=== PATIENT | male | born 1940 | race Hispanic/Latino ===

== ENCOUNTER 2018-08-19 17:07 | Inpatient (IN) | payer MEDICARE, OTHER ==
[2018-08-19 18:00] LABS: Bilirubin Moderate (Negative); Blood, Urine Negative (Negative); Clarity CLEAR (Clear); Glucose, Urine (Dipstick) 250 mg/dL (Negative); Leukocyte Negative (Negative); Nitrite Negative (Negative); Protein, Urine (Dipstick) 30 mg/dL (Neg-Trace); Specific Gravity, Urine 1.011 (1.002-1.036); pH, Urine 7.5 (5.0-9.0)
[2018-08-19 18:01] LABS: Bacteria/HPF None Seen HPF (None Seen); Hyaline Casts/LPF 0-3 HYALINE CAST LPF (0-3 Hyaline); RBC/HPF 0-3 HPF (0-3); Squamous Epithelial None Seen HPF (0-3); WBC/HPF 0-3 HPF (0-3)
[2018-08-19] MEDS ORDERED: Ondansetron PF 4 MG/2 ML Vial IVP PRN (18:02)
[2018-08-19] MEDS ORDERED: Acetaminophen 1,000 MG in Premix Bag 1 BAG IVPB PRN (18:04)
[2018-08-19] MEDS ORDERED: Promethazine 25 MG TAB PO PRN (18:06)
--- NOTE | 2018-08-19 18:22 | RAD ---
PORTABLE AP CHEST X-RAY 08/19/18 HISTORY: UTI. Continued weakness and leg pain. COMPARISON: 04/17/16. FINDINGS: The cardiac silhouette and pulmonary vasculature are within normal limits. Lungs are clear. There is stable symmetric biapical pleural thickening noted. Vascular calcifications are seen in the thoracic aorta. There has been no interval change from the prior exam. IMPRESSION: No acute cardiopulmonary process. POS: C
[2018-08-19] MEDS ORDERED: Dextrose 50% Abboject 50 ML SYRINGE SLOW IVP PRN (18:45)
[2018-08-19] MEDS ORDERED: Dextrose 5% in Water 1,000 ML IV PRN (18:45)
[2018-08-19 19:16] LABS: PTT 26.6 SEC (22.9-36.1); Prothrombin Time 13.1 SEC (12.0-14.7)
[2018-08-19] MEDS ORDERED: busPIRone HCl 5 MG TAB PO SCH (20:00)
[2018-08-19] MEDS: Sodium Chloride 0.9% 1,000 ML IV SCH (21:55)
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
[2018-08-20] MEDS ORDERED: Lorazepam 2 MG/ML VIAL ONE (01:04)
[2018-08-20] MEDS ORDERED: Fentanyl 100 MCG/2 ML VIAL ONE ×2 (06:45→09:11)
[2018-08-20] MEDS ORDERED: Lidocaine 0.5%/Epinephrine 1:200,000 50 ml Vial ONE (06:50)
[2018-08-20] MEDS ORDERED: Lorazepam 2 MG/ML VIAL SLOW IVP SCH (07:00)
[2018-08-20] MEDS: Lorazepam 2 MG/ML VIAL SLOW IVP PRN (07:01)
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
[2018-08-20] MEDS ORDERED: Famotidine/PF 20 mg/2ml Vial ONE (08:07)
[2018-08-20] MEDS ORDERED: Labetalol HCl 100 MG/20 ML VIAL ONE (09:56)
[2018-08-20] MEDS: Sodium Chloride 0.9% 1,000 ML IV SCH ×2 (10:17→16:57)
[2018-08-20] MEDS: Morphine 4 MG/ML VIAL SLOW IVP PRN ×2 (10:27→20:23)
[2018-08-20] MEDS: CEFAZOLIN 2 GM/50 ML BAG IVPB SCH ×2 (10:28→16:57)
[2018-08-20] MEDS ORDERED: Haloperidol Lactate 5 MG/ML VIAL IM SCH (10:30)
--- NOTE | 2018-08-20 10:39 | OP ---
DATE OF PROCEDURE: 08/20/2018 TROUBLE LOCATOR TEST DESK: Nilson. PROCEDURE PERFORMED: Left kimmy hole evacuation of subdural hematoma. DESCRIPTION OF PROCEDURE: The patient was brought to the operating room and intubated. He was positioned supine with the head in modest flexion on gel-filled donut. Two incisions were made in the mid orbital line on the left and kimmy holes were placed. The dura was coagulated and divided. Ayan subdural hematoma was evacuated. The subdural space was extensively irrigated until clear. A drain was left in the subdural space. The wounds were extensively irrigated and then closed in anatomic layers. Job ID: [id number]
--- NOTE | 2018-08-20 12:17 | PDOC.PN ---
- Subjective Encounter Start Date: 08/20/18 Encounter Start Time: 12:16 . Wallace was seen today in follow-up of medical management of DM and HTN. He is s /p [place] hole for Subdural hematoma. - Objective MAR Reviewed: Yes Vital Signs & Weight: Vital Signs (12 hours) Temp Pulse BP Pulse Ox 08/20/18 10:56 97.4 F L 08/20/18 10:19 80 175/101 H 08/20/18 07:33 100 08/20/18 07:00 99.2 F 08/20/18 04:00 97.2 F L Weight Admit Weight 128 lb Weight 128 lb 1.417 oz Most Recent Monitor Data Heart Rate from ECG 73 NIBP 101/70 NIBP BP-Mean 80 Respiration from ECG 14 SpO2 94 I&O: 08/19/18 08/20/18 08/21/18 06:59 06:59 06:59 Intake Total 604 50 Output Total 450 60 Balance 154 -10 Additional Labs: Accuchecks 08/20/18 08/20/18 08/19/18 05:47 00:29 22:03 POC Glucose 162 H 135 H 156 H Phys Exam - Physical Examination HEENT: PERRLA Respiratory: no wheezing, no rales, no rhonchi, clear to auscultation bilateral Cardiovascular: RRR, no significant murmur, no rub Gastrointestinal: soft, non-tender, no distention, positive bowel sounds Musculoskeletal: no edema, pulses present Dx/Plan (1) Hypertension Code(s): I10 - ESSENTIAL (PRIMARY) HYPERTENSION Status: Chronic (2) Diabetes mellitus type 2 in nonobese Code(s): E11.9 - TYPE 2 DIABETES MELLITUS WITHOUT COMPLICATIONS Status: Chronic (3) Dysphagia Code(s): R13.10 - DYSPHAGIA, UNSPECIFIED Status: Acute (4) Subdural hematoma, acute Code(s): S06.5X9A - TRAUM SUBDR HEM W LOC OF UNSP DURATION, INIT Status: Acute - Plan * HTN- blood pressure is controlled * DM- stable- will continue SSI for now- once he is eating- will re-start scheduled insulin * Dysphagia- once feasible, will have Speech Therapy perform an evaluation * Subdural Hematoma- he is s/p Kevin Hole.
[2018-08-20] MEDS: HumaLOG 300 UNITS/3 ML VIAL SC PRN ×2 (13:00→18:06)
--- NOTE | 2018-08-20 13:10 | PQF ---
CLINICAL DOCUMENTATION IMPROVEMENT CLARIFICATION FORM: ICD-10 Updated PLEASE DO AN ADDENDUM TO THE PROGRESS NOTE WITH ANY DOCUMENTATION UPDATES OR ADDITIONS AND CARRY THROUGH TO DC SUMMARY. THANK YOU. DATE: 08/20/18 ATTN : DR. LUCAS Please exercise your independent, professional judgment in responding to the clarification form. Clinical indicators are provided on the bottom of this form for your review Please check appropriate box(s): [ ] Cerebral edema / Vasogenic edema [ ] Compression of brain Due to: [ ] Intracranial tumor [ ] Intracranial hematoma [ ] Acute cerebral infarction [ ] Traumatic brain injury [ ] Obstructive hydrocephalus [ ] Other diagnosis [ ] Unable to determine In addition, please specify: Present on Admission (POA): [ ] Yes [ ] No [ ] Unable to determine For continuity of documentation, please document condition throughout progress notes and discharge summary. Thank You. CLINICAL INDICATORS - SIGNS / SYMPTOMS / LABS ER NOTE: "CHRONIC SUBDURAL WITH MIDLINE SHIFT" RISKS: SUBDURAL HEMATOMA TREATMENT: ELIAS HOLE EVACUATION LABETALOL NEUROSURGERY CONSULT NEURO CHECKS INCREASED MONITORING OF BLOOD PRESSURE (This form is maintained as a part of the permanent medical record) 2014 [employer]. All Rights Reserved ANGELICA [email or web address] Office: [phone] [facility]
[2018-08-20] MEDS ORDERED: Labetalol HCl 100 MG/20 ML VIAL SLOW IVP PRN (14:16)
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
[2018-08-20] MEDS ORDERED: Metoclopramide HCl 10 MG/2 ML VIAL ONE (21:03)
[2018-08-20] MEDS ORDERED: PHENYLEPHRINE-NS 100 MCG/ML 10 ML SYRINGE ONE (21:03)
[2018-08-20] MEDS ORDERED: CEFAZOLIN 1 GM VIAL ONE (21:03)
[2018-08-20] MEDS ORDERED: Sterile Water 10 ML VIAL ONE (21:03)
[2018-08-20] MEDS ORDERED: Succinylcholine Chloride 20 MG/ML 10 ml SYRINGE FS ONE (21:03)
[2018-08-20] MEDS ORDERED: Lidocaine 1% PF 5 ML VIAL ONE (21:03)
[2018-08-20] MEDS ORDERED: Ondansetron PF 4 MG/2 ML Vial ONE (21:03)
[2018-08-20] MEDS ORDERED: PROPOFOL 200 MG/20 ML VIAL ONE (21:03)
[2018-08-20] MEDS ORDERED: ePHEDrine/0.9% NaCl/PF SYRINGE 50 mg/10 ml ONE (21:03)
[2018-08-21] MEDS: HumaLOG 300 UNITS/3 ML VIAL SC PRN ×2 (00:37→11:48)
[2018-08-21] MEDS: CEFAZOLIN 2 GM/50 ML BAG IVPB SCH ×2 (02:14→10:06)
[2018-08-21 04:39] LABS: Hemoglobin 13.2 g/dL (14.0-18.0); Mean Corpuscular HGB CONC 34.6 g/dL (32.0-36.0); Mean Corpuscular Hemoglobin 32.1 pg (27.0-31.0); Mean Corpuscular Volume 92.8 fL (78.0-98.0); Platelet Count 350 thou/uL (130-400); RBC Distribution Width 12.4 % (11.5-14.5); Red Blood Cell (RBC) Count 4.12 mill/uL (4.70-6.10); White Blood Cell (WBC) Count 11.5 thou/uL (4.8-10.8)
[2018-08-21 04:49] LABS: Lymphocytes 9 % (21-51); MDiff Complete? YES; Monocytes 1 % (0-10); Neutrophil 88 % (42-75); Platelet Morphology Comment Appears Adequate; RBC Morphology Normal; Reactive Lymphocytes 2 % (0-10)
[2018-08-21 04:50] LABS: Anion Gap 15 mmol/L (10-20); BUN (Urea Nitrogen) 18 mg/dL (8.4-25.7); Calc. Creatinine Clearance 46 mL/min (70-130); Calcium 8.8 mg/dL (7.8-10.44); Carbon Dioxide 20 mmol/L (23-31); Chloride 104 mmol/L (98-107); Estimated GFR-MDRD 63; Glucose 172 mg/dL (83-110); Potassium 4.1 mmol/L (3.5-5.1); Sodium 135 mmol/L (136-145)
[2018-08-21] MEDS: Sodium Chloride 0.9% 1,000 ML IV SCH ×3 (07:25→21:33)
[2018-08-21] MEDS: HYDROcodone/Acetaminophen 10/325 mg Tablet PO PRN ×2 (07:25→20:13)
--- NOTE | 2018-08-21 08:24 | CT ---
PRELIMINARY REPORT/[facility]/EMERGENTY AFTER-HOURS PROCEDURE Addendum created by Axel Heard MD on 08/21/2018 5:53 AM Central Time ([employer]) Prior images from 08/19/18 subsequently submitted for review. LEFT subdural hemorrhage and midline shift have decreased f rom prior. Initial Report created on 08/21/2018 5:28 AM Central Time ([employer]) CT Head Without Contrast EXAM DATE/TIME: 08/21/2018 3:10 AM CLINICAL HISTORY: 77 years old, male; Device placement; Cerebral fluid drainiage device or shunt; Prior surgery; Surger y date: Post-operative (0-2 days); Patient HX: S/P evac sdh; Additional info: PT was scanned at [facility] facility with mrn of [id number], prior images sent. TECHNIQUE: Axial computed tomography images of the head/brain without contrast. COMPARISON: No relevant prior studies available. FINDINGS: Brain: There is been interval LEFT frontoparietal subdural drain placement via a LEFT frontal kimmy ho le. LEFT frontoparietal fluid measures up to 12 mm in short axis resulting in mild mass effect Midline shift: Midline shift now measures approximately 5 mm Ventricles: Normal. No ventriculomegaly. Bones/joints: Normal. No acute fracture. Sinuses: Normal as visualized. No acute sinusitis. Mastoid air cells: Normal as visualized. No mastoid effusion. Soft tissues: Normal. IMPRESSION: LEFT frontoparietal subdural hemorrhage post evacuation/drain placement with mild mass effect/midline shift of 5 mm, decreased as per prior report. Thank you for allowing us to participate in the care of your patient. Dictated and Authenticated by: Axel Heard MD 08/21/2018 5:28 AM Central Time ([employer]) FINAL REPORT CT HEAD NONCOTNRAST: FINDINGS/IMPRESSION: Agree with the preliminary interpretation provided above. Post subdural drainage placement overlying left convexity with residual mixed density subdural hemorr hagic fluid collection, decreased in volume from comparison (08/19/2018) exam, with details discussed a cindy. Recommend continued imaging followup. POS: [facility]
--- NOTE | 2018-08-21 09:38 | PDOC.PN ---
- Subjective Encounter Start Date: 08/21/18 Encounter Start Time: 09:37 Mr. Gonsalez was seen today in follow-up of medical management in patient with Sudbural hematoma. He is s/p kimmy hole, and he is awake, he had some agitation yesterday, but this has improved with Haldol. He is a bit drowsy, but awake. No complaints. - Objective MAR Reviewed: Yes Vital Signs & Weight: Vital Signs (12 hours) Temp Pulse Ox 08/21/18 08:00 99 08/21/18 07:00 97.3 F L 08/21/18 04:00 97.0 F L 08/21/18 00:00 97.8 F Weight Admit Weight 128 lb Weight 125 lb 10.616 oz Most Recent Monitor Data Heart Rate from ECG 58 NIBP 74/48 NIBP BP-Mean 56 Respiration from ECG 19 SpO2 97 I&O: 08/20/18 08/21/18 08/22/18 06:59 06:59 06:59 Intake Total 604 2048.7 90 Output Total 450 975 235 Balance 154 1073.7 -145 Result Diagrams: 08/21/18 04:05 08/21/18 04:05 Additional Labs: Accuchecks 08/21/18 08/20/18 08/20/18 00:35 17:55 12:38 POC Glucose 213 H 166 H 220 H Phys Exam - Physical Examination HEENT: PERRLA Respiratory: no wheezing, no rales, no rhonchi, clear to auscultation bilateral Cardiovascular: RRR, no significant murmur, no rub Gastrointestinal: soft, non-tender, no distention, positive bowel sounds Musculoskeletal: no edema Dx/Plan (1) Hypertension Code(s): I10 - ESSENTIAL (PRIMARY) HYPERTENSION Status: Chronic (2) Diabetes mellitus type 2 in nonobese Code(s): E11.9 - TYPE 2 DIABETES MELLITUS WITHOUT COMPLICATIONS Status: Chronic (3) Dysphagia Code(s): R13.10 - DYSPHAGIA, UNSPECIFIED Status: Acute (4) Subdural hematoma, acute Code(s): S06.5X9A - TRAUM SUBDR HEM W LOC OF UNSP DURATION, INIT Status: Acute - Plan * HTN- his blood pressure has been on the lower side- this may be the effect of Presodex- will monitor * DM- blood glucose was a bit elevated- will see what his trend is today . Continue SSI * Dysphagia- he was evaluated by Speech Therapy, and was cleared for a Pureed diet- will continue to observe during the hospital stay * Subdural - he is post [place] hole, and drain is still in place. PT/ OT has been ordered
[2018-08-21] MEDS: Lorazepam 2 MG/ML VIAL SLOW IVP PRN ×2 (10:06→22:00)
[2018-08-21] MEDS: Haloperidol Lactate 5 MG/ML VIAL IM PRN (11:29)
--- NOTE | 2018-08-21 16:28 | PRG ---
DATE OF SERVICE: 08/21/2018 SUBJECTIVE: Mr. Gonsalez was up until product picker hours. He was sleeping when I arrived this morning to around on him. He was easily awakened. OBJECTIVE: He had no complaints. VITAL SIGNS: Blood pressure this afternoon is 133/76, heart rates in the 90s, respiratory rates in the teens. Oximetry is 99%. Intake and output positive 1073. He has had 235 mL out of his drain. LUNGS: Clear. HEART: Regular rhythm. ABDOMEN: Soft. EXTREMITIES: Without asymmetry or edema. LABORATORY DATA: White count 11.5, hemoglobin 13.2, and platelets 350. Sodium 135, potassium 4.1, chloride 104, bicarb 20, BUN 18, and creatinine 1.13. IMPRESSION: 1. Status post kimmy hole drainage of a subdural hematoma, clinically stable. 2. Encephalopathy Precedex drip. We will continue to follow the other physicians caring for him. Job ID: [id number]
[2018-08-21] MEDS: traZODone HCl 50 MG TAB PO SCH (20:09)
[2018-08-22] MEDS: Sodium Chloride 0.9% 1,000 ML IV SCH ×2 (03:57→12:06)
[2018-08-22] MEDS: Lorazepam 2 MG/ML VIAL SLOW IVP PRN ×3 (04:01→19:16)
[2018-08-22 04:52] LABS: Hemoglobin 12.8 g/dL (14.0-18.0); Mean Corpuscular HGB CONC 34.9 g/dL (32.0-36.0); Mean Corpuscular Hemoglobin 32.1 pg (27.0-31.0); Mean Corpuscular Volume 92.1 fL (78.0-98.0); Platelet Count 292 thou/uL (130-400); RBC Distribution Width 12.4 % (11.5-14.5); Red Blood Cell (RBC) Count 3.97 mill/uL (4.70-6.10); White Blood Cell (WBC) Count 8.7 thou/uL (4.8-10.8)
[2018-08-22 05:07] LABS: Anion Gap 13 mmol/L (10-20); BUN (Urea Nitrogen) 11 mg/dL (8.4-25.7); Calc. Creatinine Clearance 60 mL/min (70-130); Calcium 8.5 mg/dL (7.8-10.44); Carbon Dioxide 20 mmol/L (23-31); Chloride 105 mmol/L (98-107); Estimated GFR-MDRD 89; Glucose 155 mg/dL (83-110); Potassium 3.7 mmol/L (3.5-5.1); Sodium 134 mmol/L (136-145)
[2018-08-22 05:08] LABS: Band 1 % (5-11); Eosinophils 2 % (0-10); Lymphocytes 11 % (21-51); MDiff Complete? YES; Monocytes 4 % (0-10); Neutrophil 82 % (42-75)
--- NOTE | 2018-08-22 09:29 | PRG ---
DATE OF SERVICE: 08/19/2018 SUBJECTIVE: The patient is a 77-year-old male status post left-sided bur holes for evacuation of chronic subdural hematoma. Postoperatively, he was transferred to critical care, where his pain has been well controlled. He is tolerating regular diet, and he is voiding appropriately. His subdural drain output has trended down nicely. His repeat CT on postoperative day #1 showed significant improvement in chronic subdural blood. The patient has required Precedex and other p.r.n. medications for significant agitation and delirium. This morning, the patient is resting comfortably. He opens his eyes easily on command. He is A and O x4. He is moving all four easily with 5/5 strength. There is a small amount of dark red blood in the subdural drain. I have removed subdural LATISHA drain this morning. I believe that the patient can be transferred out of the ICU today once his Precedex is discontinued and his other psychiatric medications are adjusted by the Medical Team or Critical Care. The patient will likely need rehabilitation following this is done. Case management's note showed that family has requested inpatient rehabilitation in the [place] area and they are working on this. Job ID: [id number]
--- NOTE | 2018-08-22 10:03 | PDOC.PN ---
- Subjective Encounter Start Date: 08/22/18 Encounter Start Time: 10:02 Mr. Gonsalez was seen today in follow-up of medical management following subdural hematoma. - Objective MAR Reviewed: Yes Vital Signs & Weight: Vital Signs (12 hours) Temp Pulse Ox 08/22/18 07:33 99 08/22/18 07:00 98.0 F 08/22/18 04:00 97.8 F 08/22/18 00:00 97.7 F Weight Admit Weight 128 lb Weight 125 lb 10.616 oz Most Recent Monitor Data Heart Rate from ECG 59 NIBP 103/61 NIBP BP-Mean 75 Respiration from ECG 13 SpO2 97 I&O: 08/21/18 08/22/18 08/23/18 06:59 06:59 06:59 Intake Total 2048.7 2265.4 Output Total 975 2955 320 Balance 1073.7 -689.6 -320 Result Diagrams: 08/22/18 04:07 08/22/18 04:07 Additional Labs: Accuchecks 08/22/18 08/21/18 08/21/18 00:20 17:31 11:47 POC Glucose 197 H 165 H 226 H Phys Exam - Physical Examination HEENT: PERRLA Respiratory: no wheezing, no rales, no rhonchi, clear to auscultation bilateral Cardiovascular: RRR, no significant murmur, no rub Gastrointestinal: soft, non-tender, no distention, positive bowel sounds Musculoskeletal: no edema, pulses present Dx/Plan (1) Hypertension Code(s): I10 - ESSENTIAL (PRIMARY) HYPERTENSION Status: Chronic (2) Diabetes mellitus type 2 in nonobese Code(s): E11.9 - TYPE 2 DIABETES MELLITUS WITHOUT COMPLICATIONS Status: Chronic (3) Dysphagia Code(s): R13.10 - DYSPHAGIA, UNSPECIFIED Status: Acute (4) Subdural hematoma, acute Code(s): S06.5X9A - TRAUM SUBDR HEM W LOC OF UNSP DURATION, INIT Status: Acute - Plan * HTN- blood pressure is stable * DM- blood glucose is stable- will continue SSI for now, and if he begins to eat more, will re-start his insulin * Will re-start his medications for Dementia * Subdural- the drain has been removed, and agree with transfer out of the ICU .
[2018-08-22] MEDS: busPIRone HCl 5 MG TAB PO SCH (10:49)
[2018-08-22] MEDS: Venlafaxine HCl 37.5 MG TAB PO SCH ×2 (10:49→20:13)
[2018-08-22 11:04] VITALS: BMI 19.1
[2018-08-22] MEDS: HumaLOG 300 UNITS/3 ML VIAL SC PRN (12:03)
--- NOTE | 2018-08-22 12:04 | PRG ---
DATE OF SERVICE: 08/22/2018 SUBJECTIVE: Abel Gonsalez had his kimmy hole drain removed this morning. OBJECTIVE: GENERAL: He is in no distress. VITAL SIGNS: Heart rate is 90, his blood pressure is 123/87, respiratory rate is 22, and oximetry is 96%. LUNGS: Clear. HEART: Regular rhythm. ABDOMEN: Soft. EXTREMITIES: Without clubbing, cyanosis, or edema. PLAN: 1. His Precedex been discontinued. 2. He is on BuSpar now. 3. He also has a p.r.n. for Haldol if needed. 4. He is tentatively scheduled to transfer out of the Critical Care Unit to the Stroke Unit. 5. He will need a sitter or family to stay with him in my opinion. We will sign off when he transfers out of the Critical Care Unit. Job ID: [id number]
[2018-08-22] MEDS: Morphine 4 MG/ML VIAL SLOW IVP PRN ×2 (15:33→20:11)
[2018-08-22] MEDS: hydrALAZINE 20 MG/ML VIAL SLOW IVP PRN (15:35)
[2018-08-22] MEDS: HYDROcodone/Acetaminophen 10/325 mg Tablet PO PRN (18:38)
[2018-08-22] MEDS: Atorvastatin Calcium 10 MG TAB PO SCH (20:13)
[2018-08-22] MEDS: traZODone HCl 50 MG TAB PO SCH (20:13)
[2018-08-22] MEDS ORDERED: Venlafaxine HCl 37.5 MG TAB PO SCH (21:00)
[2018-08-22] MEDS: Haloperidol Lactate 5 MG/ML VIAL IM PRN (22:01)
[2018-08-23] MEDS ORDERED: Ziprasidone 20 MG VIAL IM SCH (01:45)
[2018-08-23] MEDS ORDERED: Sterile Water 10 ML VIAL FS SCH (01:45)
[2018-08-23] MEDS: Sodium Chloride 0.9% 1,000 ML IV SCH ×3 (03:18→23:08)
[2018-08-23 06:53] LABS: Anion Gap 15 mmol/L (10-20); BUN (Urea Nitrogen) 14 mg/dL (8.4-25.7); Calc. Creatinine Clearance 58 mL/min (70-130); Carbon Dioxide 21 mmol/L (23-31); Chloride 105 mmol/L (98-107); Estimated GFR-MDRD 84; Glucose 118 mg/dL (83-110); Potassium 3.6 mmol/L (3.5-5.1); Sodium 137 mmol/L (136-145)
[2018-08-23 07:57] LABS: Band 6 % (5-11); Lymphocytes 12 % (21-51); MDiff Complete? YES; Mean Corpuscular HGB CONC 34.6 g/dL (32.0-36.0); Mean Corpuscular Hemoglobin 31.8 pg (27.0-31.0); Mean Corpuscular Volume 91.9 fL (78.0-98.0); Mean Platelet Volume 7.5 fL (7.4-10.4); Monocytes 7 % (0-10); Neutrophil 75 % (42-75); Platelet Count 306 thou/uL (130-400); RBC Distribution Width 12.4 % (11.5-14.5); Red Blood Cell (RBC) Count 4.08 mill/uL (4.70-6.10); White Blood Cell (WBC) Count 9.5 thou/uL (4.8-10.8)
[2018-08-23] MEDS ORDERED: busPIRone HCl 5 MG TAB PO SCH (09:00)
[2018-08-23] MEDS: Lisinopril 2.5 MG TAB PO SCH (09:15)
[2018-08-23] MEDS: busPIRone HCl 5 MG TAB PO SCH (09:15)
[2018-08-23] MEDS: Venlafaxine HCl 37.5 MG TAB PO SCH ×2 (09:15→19:59)
[2018-08-23] MEDS: Levothyroxine Sodium 25 MCG TAB PO SCH (09:15)
[2018-08-23] MEDS: Lorazepam 2 MG/ML VIAL SLOW IVP PRN ×3 (10:54→23:44)
--- NOTE | 2018-08-23 12:32 | PRG ---
DATE OF SERVICE: DICTATED FOR: Chaitanya Hercules MD SUBJECTIVE: Mr. Gonsalez is now operative day #3, having undergone left kimmy hole evacuation of chronic subdural hematoma. The patient states he is doing good today. He does report some headache that has been stable over the past several days. He has been ambulating and does not appear to have any focal deficits. Hospitalists are helping manage the patient's medical issues. Otherwise, the patient is stable for discharge to rehab once arrangements have been made. Case management has been working on this with the patient's family. Again, he is stable for discharge when arrangements have been made. Please call with any changes in the patient's neurologic status. Job ID: [id number]
--- NOTE | 2018-08-23 13:29 | PDOC.PN ---
- Subjective Encounter Start Date: 08/23/18 Encounter Start Time: 13:27 Mr. Gonsalez was seen today in follow-up of hypertension, and diabetes mellitus. He has been agitated off and on. He can not get comfortable. - Objective MAR Reviewed: Yes Vital Signs & Weight: Vital Signs (12 hours) Temp Pulse Resp BP Pulse Ox 08/23/18 11:30 97.4 F L 91 14 161/64 H 92 L 08/23/18 09:15 101 H 08/23/18 08:00 92 L 08/23/18 07:12 97.4 F L 101 H 16 217/91 H 92 L 08/23/18 03:58 97.6 F 105 H 18 116/80 97 Weight Admit Weight 128 lb Weight 125 lb 10.616 oz Most Recent Monitor Data Heart Rate from ECG 95 NIBP 144/67 NIBP BP-Mean 92 Respiration from ECG 22 SpO2 94 I&O: 08/22/18 08/23/18 08/24/18 06:59 06:59 06:59 Intake Total 2265.4 2193.3 Output Total 2955 460 Balance -689.6 1733.3 Result Diagrams: 08/23/18 05:10 08/23/18 05:10 Additional Labs: Accuchecks 08/23/18 08/23/18 08/22/18 12:22 05:34 20:22 POC Glucose 139 H 119 H 140 H 08/22/18 18:13 POC Glucose 120 H Phys Exam - Physical Examination HEENT: PERRLA Respiratory: no wheezing, no rales, no rhonchi, clear to auscultation bilateral Cardiovascular: RRR, no significant murmur, no rub Gastrointestinal: soft, non-tender, no distention, positive bowel sounds Musculoskeletal: no edema, pulses present Dx/Plan (1) Hypertension Code(s): I10 - ESSENTIAL (PRIMARY) HYPERTENSION Status: Chronic (2) Diabetes mellitus type 2 in nonobese Code(s): E11.9 - TYPE 2 DIABETES MELLITUS WITHOUT COMPLICATIONS Status: Chronic (3) Dysphagia Code(s): R13.10 - DYSPHAGIA, UNSPECIFIED Status: Acute (4) Subdural hematoma, acute Code(s): S06.5X9A - TRAUM SUBDR HEM W LOC OF UNSP DURATION, INIT Status: Acute - Plan * HTN- blood pressure is elevated- but I suspect this is due to his restlessness * Agitation- will give a trial of Geodon * DM- blood glucose is stable * Subdural hematoma- stable.
[2018-08-23] MEDS: Ziprasidone 20 MG CAP PO PRN ×2 (15:33→23:09)
[2018-08-23] MEDS: traZODone HCl 50 MG TAB PO SCH (19:58)
[2018-08-23] MEDS: Atorvastatin Calcium 10 MG TAB PO SCH (19:59)
[2018-08-23] MEDS: Insulin Glargine 10 UNITS in Pre-Filled Syringe SC SCH (20:49)
[2018-08-23] MEDS ORDERED: Non-Formulary Item 1 EACH (Levemir Flexpen [Levemir Flexpen] 25 UNITS) SQ SCH (21:00)
[2018-08-23] MEDS ORDERED: Non-Formulary Item 1 EACH (Levemir Flexpen [Levemir Flexpen] 10 UNITS) SQ SCH (21:00)
[2018-08-24 06:05] LABS: Anion Gap 15 mmol/L (10-20); BUN (Urea Nitrogen) 13 mg/dL (8.4-25.7); Calc. Creatinine Clearance 56 mL/min (70-130); Calcium 9.2 mg/dL (7.8-10.44); Carbon Dioxide 20 mmol/L (23-31); Chloride 105 mmol/L (98-107); Estimated GFR-MDRD 82; Glucose 102 mg/dL (83-110); Potassium 3.7 mmol/L (3.5-5.1); Sodium 136 mmol/L (136-145)
[2018-08-24] MEDS: Lorazepam 2 MG/ML VIAL SLOW IVP PRN (06:46)
[2018-08-24 06:49] LABS: Band 1 % (5-11); Hemoglobin 13.2 g/dL (14.0-18.0); Lymphocytes 14 % (21-51); MDiff Complete? YES; Mean Corpuscular HGB CONC 34.9 g/dL (32.0-36.0); Mean Corpuscular Hemoglobin 31.9 pg (27.0-31.0); Mean Corpuscular Volume 91.2 fL (78.0-98.0); Mean Platelet Volume 7.3 fL (7.4-10.4); Monocytes 11 % (0-10); Neutrophil 74 % (42-75); Platelet Count 296 thou/uL (130-400); RBC Distribution Width 12.4 % (11.5-14.5); Red Blood Cell (RBC) Count 4.16 mill/uL (4.70-6.10); White Blood Cell (WBC) Count 8.9 thou/uL (4.8-10.8)
[2018-08-24] MEDS: Venlafaxine HCl 37.5 MG TAB PO SCH ×2 (08:36→20:13)
[2018-08-24] MEDS: busPIRone HCl 5 MG TAB PO SCH (08:36)
[2018-08-24] MEDS: Levothyroxine Sodium 25 MCG TAB PO SCH (08:36)
[2018-08-24] MEDS: Insulin Glargine 10 UNITS in Pre-Filled Syringe SC SCH ×2 (08:36→20:12)
[2018-08-24] MEDS: Lisinopril 2.5 MG TAB PO SCH (08:36)
[2018-08-24] MEDS: Sodium Chloride 0.9% 1,000 ML IV SCH (12:05)
[2018-08-24] MEDS: HumaLOG 300 UNITS/3 ML VIAL SC PRN (12:08)
--- NOTE | 2018-08-24 12:46 | PRG ---
DATE OF SERVICE: 08/24/2018 SUBJECTIVE: Mr. Gonsalez is postoperative from left-sided kimmy hole evacuation of subdural hematoma. He spent a fair amount of time outside yesterday with family and evidently was doing very well. He continues to do well this morning. He is resting in bed, but is awake and moves extremities to command and his wounds are healing well. I have been told that he has been accepted in [place] for placement. We will work toward that today. Job ID: [id number]
--- NOTE | 2018-08-24 14:20 | PDOC.PN ---
- Subjective Encounter Start Date: 08/24/18 Encounter Start Time: 14:19 Mr. Gonsalez was seen today in follow-up of medical management. He has been more calm today. He does not have any new complaints. - Objective MAR Reviewed: Yes Vital Signs & Weight: Vital Signs (12 hours) Temp Pulse Resp BP Pulse Ox 08/24/18 10:57 97.4 F L 93 18 177/78 H 99 08/24/18 08:36 100 08/24/18 08:02 97.9 F 100 18 187/77 H 99 08/24/18 08:00 99 08/24/18 04:10 97.6 F 99 16 146/80 H 97 Weight Admit Weight 128 lb Weight 125 lb 10.616 oz Most Recent Monitor Data Heart Rate from ECG 95 NIBP 144/67 NIBP BP-Mean 92 Respiration from ECG 22 SpO2 94 I&O: 08/23/18 08/24/18 08/25/18 06:59 06:59 06:59 Intake Total 2193.3 920 480 Output Total 460 800 Balance 1733.3 920 -320 Result Diagrams: 08/24/18 04:58 08/24/18 04:58 Additional Labs: Accuchecks 08/24/18 08/24/18 08/23/18 11:02 05:53 23:35 POC Glucose 183 H 115 H 124 H 08/23/18 08/23/18 20:15 15:30 POC Glucose 162 H 168 H Phys Exam - Physical Examination HEENT: PERRLA Respiratory: no wheezing, no rales, no rhonchi, clear to auscultation bilateral Cardiovascular: RRR, no significant murmur, no rub Gastrointestinal: soft, non-tender, no distention, positive bowel sounds Musculoskeletal: no edema, pulses present Dx/Plan (1) Hypertension Code(s): I10 - ESSENTIAL (PRIMARY) HYPERTENSION Status: Chronic (2) Diabetes mellitus type 2 in nonobese Code(s): E11.9 - TYPE 2 DIABETES MELLITUS WITHOUT COMPLICATIONS Status: Chronic (3) Dysphagia Code(s): R13.10 - DYSPHAGIA, UNSPECIFIED Status: Acute (4) Subdural hematoma, acute Code(s): S06.5X9A - TRAUM SUBDR HEM W LOC OF UNSP DURATION, INIT Status: Acute - Plan * HTN- blood pressure is elevated- will add Amlodipine * DM- blood glucose is stable * Subdural Hematoma- he is s/p kimmy hole, and clinically stable * Plan is for transfer to half-way facility tomorrow.
[2018-08-24] MEDS: Ziprasidone 20 MG CAP PO PRN (16:20)
[2018-08-24] MEDS ORDERED: Amlodipine 5 MG TAB PO SCH (18:00)
[2018-08-24] MEDS: HYDROcodone/Acetaminophen 10/325 mg Tablet PO PRN (18:54)
[2018-08-24] MEDS: Atorvastatin Calcium 10 MG TAB PO SCH (20:13)
[2018-08-24] MEDS: traZODone HCl 50 MG TAB PO SCH (20:13)
[2018-08-25] MEDS: HumaLOG 300 UNITS/3 ML VIAL SC PRN ×2 (00:24→06:22)
[2018-08-25] MEDS: hydrALAZINE 20 MG/ML VIAL SLOW IVP PRN (04:44)
[2018-08-25] MEDS: Lorazepam 2 MG/ML VIAL SLOW IVP PRN (05:30)
[2018-08-25] MEDS: HYDROcodone/Acetaminophen 10/325 mg Tablet PO PRN ×2 (06:58→11:03)
[2018-08-25 07:23] LABS: Hemoglobin 12.9 g/dL (14.0-18.0); Mean Corpuscular Volume 91.5 fL (78.0-98.0); Mean Platelet Volume 7.2 fL (7.4-10.4); Platelet Count 309 thou/uL (130-400); RBC Distribution Width 12.4 % (11.5-14.5); Red Blood Cell (RBC) Count 4.03 mill/uL (4.70-6.10); White Blood Cell (WBC) Count 7.4 thou/uL (4.8-10.8)
[2018-08-25 07:30] LABS: Anion Gap 12 mmol/L (10-20); BUN (Urea Nitrogen) 16 mg/dL (8.4-25.7); Calc. Creatinine Clearance 52 mL/min (70-130); Calcium 9.3 mg/dL (7.8-10.44); Carbon Dioxide 25 mmol/L (23-31); Chloride 105 mmol/L (98-107); Estimated GFR-MDRD 75; Glucose 163 mg/dL (83-110); Potassium 3.4 mmol/L (3.5-5.1); Sodium 139 mmol/L (136-145)
[2018-08-25] MEDS: Levothyroxine Sodium 25 MCG TAB PO SCH (08:14)
[2018-08-25] MEDS: Lisinopril 2.5 MG TAB PO SCH (08:14)
[2018-08-25] MEDS: Venlafaxine HCl 37.5 MG TAB PO SCH (08:14)
[2018-08-25] MEDS: busPIRone HCl 5 MG TAB PO SCH (08:14)
[2018-08-25] MEDS ORDERED: Insulin Glargine 25 UNITS in Pre-Filled Syringe 1 EACH SC SCH ×2 (09:00→21:00)
[2018-08-25 10:07] LABS: Band 3 % (5-11); Eosinophils 4 % (0-10); Lymphocytes 12 % (21-51); MDiff Complete? YES; Monocytes 6 % (0-10); Neutrophil 75 % (42-75); RBC Morphology Normal
--- NOTE | 2018-08-25 11:32 | PDOC.PN ---
- Subjective Encounter Start Date: 08/25/18 Encounter Start Time: 11:31 Mr. Gonsalez was seen today in follow-up of medical management following sudbural hematoma. He does not have any complaints this morning. He wants to know what time he is leaving. - Objective MAR Reviewed: Yes Vital Signs & Weight: Vital Signs (12 hours) Temp Pulse Resp BP BP Pulse Ox 08/25/18 07:48 98.0 F 114 H 18 169/88 H 97 08/25/18 05:35 116 H 159/95 H 08/25/18 05:00 98.3 F 93 16 184/80 H 99 08/25/18 04:44 89 185/83 H 08/25/18 01:01 98.0 F 88 16 97/58 L 95 Weight Admit Weight 128 lb Weight 125 lb 10.616 oz Most Recent Monitor Data Heart Rate from ECG 95 NIBP 144/67 NIBP BP-Mean 92 Respiration from ECG 22 SpO2 94 I&O: 08/24/18 08/25/18 08/26/18 06:59 06:59 06:59 Intake Total 920 1750 Output Total 1150 Balance 920 600 Result Diagrams: 08/25/18 06:22 08/25/18 06:22 Additional Labs: Accuchecks 08/25/18 08/25/18 08/25/18 10:45 06:17 00:15 POC Glucose 176 H 166 H 409 H 08/24/18 08/24/18 08/24/18 20:12 15:40 11:02 POC Glucose 451 H 129 H 183 H Phys Exam - Physical Examination HEENT: PERRLA + mild swelling around the left eye, and check Respiratory: no wheezing, no rales, no rhonchi, clear to auscultation bilateral Cardiovascular: RRR, no significant murmur, no rub Gastrointestinal: soft, non-tender, no distention, positive bowel sounds Musculoskeletal: no edema, pulses present Neurological: non-focal Dx/Plan (1) Hypertension Code(s): I10 - ESSENTIAL (PRIMARY) HYPERTENSION Status: Chronic (2) Diabetes mellitus type 2 in nonobese Code(s): E11.9 - TYPE 2 DIABETES MELLITUS WITHOUT COMPLICATIONS Status: Chronic (3) Dysphagia Code(s): R13.10 - DYSPHAGIA, UNSPECIFIED Status: Acute (4) Subdural hematoma, acute Code(s): S06.5X9A - TRAUM SUBDR HEM W LOC OF UNSP DURATION, INIT Status: Acute - Plan * HTN- blood pressure is a bit elevated- Amlodipine has been added * DM- blood glucose is also trending back up- will increase his insulin dose back to his home dose * Subdural- he is stable for transition to [facility].
[2018-08-25 11:56] VITALS: BP 152/64; TEMP 98.4
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
--- NOTE | 2018-08-26 08:19 | PQF ---
CLINICAL DOCUMENTATION IMPROVEMENT CLARIFICATION FORM: ICD-10 Updated PLEASE DO AN ADDENDUM TO THE PROGRESS NOTE WITH ANY DOCUMENTATION UPDATES OR ADDITIONS AND CARRY THROUGH TO DC SUMMARY. THANK YOU. DATE: 08/26/18 ATTN: DR. DANGELO Please exercise your independent, professional judgment in responding to the clarification form. Clinical indicators are provided on the bottom of this form for your review Please check appropriate box(s): [ ] Cerebral edema / Vasogenic edema [ ] Compression of brain Due to: [ ] Intracranial tumor [ ] Intracranial hematoma [ ] Acute cerebral infarction [ ] Traumatic brain injury [ ] Obstructive hydrocephalus [X ] Other diagnosis __Subdural Hematoma [ ] Unable to determine In addition, please specify: Present on Admission (POA): [ X] Yes [ ] No [ ] Unable to determine For continuity of documentation, please document condition throughout progress notes and discharge summary. Thank You. CLINICAL INDICATORS - SIGNS / SYMPTOMS / LABS ER NOTE: "CHRONIC SUBDURAL WITH MIDLINE SHIFT" RISKS: SUBDURAL HEMATOMA TREATMENT: ELIAS HOLE EVACUATION LABETALOL NEUROSURGERY CONSULT NEURO CHECKS INCREASED MONITORING OF BLOOD PRESSURE (This form is maintained as a part of the permanent medical record) 2014 [employer]. All Rights Reserved ANGELICA [email or web address] Office: [phone] [facility]
--- NOTE | 2018-08-30 20:30 | EKG ---
Test Reason : Blood Pressure : / mmHG Vent. Rate : 071 BPM Atrial Rate : 071 BPM P-R Int : 158 ms QRS Dur : 098 ms QT Int : 394 ms P-R-T Axes : 063 040 042 degrees QTc Int : 428 ms Normal sinus rhythm Normal ECG Confirmed by JAKUB MEMBRENO MD ([id number]), make up editor ANDREWS MENDIOLA ([id number]) on 08/30/2018 8:29:51 PM Referred By: Confirmed By:JAKUB MEMBRENO MD
== END 2018-08-25 12:15 | DRG 26 ==
LOC: ERS 17:07 → CCU 18:01 → SURG A 08-22 12:20
PROVIDERS: ADMIT Internal Medicine; ATTEND Internal Medicine
PROC: 00C40ZZ Extirpation of Matter from Intracranial Subdural Space, Open Approach (ICD-10-PCS; principal; 2018-08-20)
DX: S06.5X9A Traumatic subdural hemorrhage with loss of consciousness of unspecified duration, initial encounter (principal); G81.91 Hemiplegia, unspecified affecting right dominant side; E03.9 Hypothyroidism, unspecified; E78.5 Hyperlipidemia, unspecified; E53.8 Deficiency of other specified B group vitamins; Z79.899 Other long term (current) drug therapy; Z79.4 Long term (current) use of insulin; Z79.2 Long term (current) use of antibiotics; R13.10 Dysphagia, unspecified; D64.9 Anemia, unspecified; E11.22 Type 2 diabetes mellitus with diabetic chronic kidney disease; I12.9 Hypertensive chronic kidney disease with stage 1 through stage 4 chronic kidney disease, or unspecified chronic kidney disease
CPT/HCPCS: 36415; 36416; 70450; 71045; 80048; 81003; 81015; 85007; 85027; 93005; A4216; J0131; J0360; J0690; J1630; J2001; J2060; J2270; J2405; J2704; J2765; J3010; J3486; J7050; S0028

== ENCOUNTER 2018-09-09 12:38 | Outpatient (CLI) | payer MEDICARE, OTHER ==
--- NOTE | 2018-09-09 14:42 | CT ---
CT BRAIN NONCONTRAST: DATE: 09-09-18 TIME: 12:55 p.m. HISTORY: Follow up subdural hematoma. Dr. Stoll discussed the interval increase in the subdural hematoma by telephone with neurosurgery Kellie MCDANIEL at 1:13 p.m. on 09-09-18. COMPARISON: 08-21-18 FINDINGS: The left subdural drainage catheter has been removed. The left ilxvat-bpjaenv-uobtksyl subdural hemat sindhu has increased in size, now with transverse dimension of approximately 1.9 cm (19 mm), at axial le taty 20 of 32, series 2, at the level of the centrum semiovale. Comparable image on the previous study shows measurement in that location of approximately 1.2 cm (12 mm). Furthermore, there is a small am ount of new, hyperdense more acute blood within the subdural hematoma, and the overall density of the entire fluid collection is slightly higher than that of 08-21-18. This re-growing hematoma exerts a gr eater degree of mass effect upon the left cerebral hemisphere, distorting the left lateral ventricle, effacing the trigone of the left lateral ventricle, and causing mild left to right midline shift of the septum pellucidum a distance of approximately 0.4 cm (4 mm). There is no acute intraaxial hemorrh age. Again noted are the two left calvarial kimmy holes with overlying skin soledad. IMPRESSION: Interval re-bleeding and growth of the left supratentorial subdural hematoma, resulting in greater de gree of mass effect and mild subfalcine herniation, after removal of the left subdural drainage erick ter. Code CR JN R POS: [facility]
== END 2018-09-09 12:39 | disposition home or self-care (01) ==
LOC: TBSIIMAG 12:38
PROVIDERS: ATTEND Neurological Surgery
DX: S06.5X0D Traumatic subdural hemorrhage without loss of consciousness, subsequent encounter (principal)
CPT/HCPCS: 70450

== ENCOUNTER 2018-10-07 12:52 | Outpatient (CLI) | payer MEDICARE, OTHER ==
--- NOTE | 2018-10-07 14:44 | CT ---
CT HEAD NONCONTRAST: Indication: Subdural hematoma. Comparison: 09-09-18 FINDINGS: Since the prior head CT, there has been interval decreased volume of extraaxial hemorrhagic collectio n overlying the left convexity, where it previously measured 18 mm, currently measuring 11 mm. Extraa xial collection is predominately hyperdense, some of which could relate to interval re-bleed despite the decreased volume, or alternatively, this could relate to concentrated hematocrit effect. Neverthe less, no size progression or interval increase with regard to intracranial mass effect. Kevin hole is present at the left frontal bone, and within the high left parietal bone. There is mild density along the posterior interhemispheric falx, new from prior exam indicating interval re-distribution of a sm all component of subdural hemorrhage, measuring 2 mm in thickness. No additional significant interval change. IMPRESSION: 1. Interval decreased volume of left side extraaxial hematoma with increased density as discussed abo ve. 2. Thin linear oriented mild subdural hematoma along the posterior interhemispheric falx likely relat ing to re-distribution. This does not result in mass effect. 3. At the level of septum pellucidum, rightward septal herniation measures 3 mm, slightly decreased. POS: [facility]
== END 2018-10-07 12:53 | disposition home or self-care (01) ==
LOC: TBSIIMAG 12:52
PROVIDERS: ATTEND Neurological Surgery
DX: I62.03 Nontraumatic chronic subdural hemorrhage (principal)
CPT/HCPCS: 70450

== ENCOUNTER 2021-10-15 15:10 | Inpatient (IN) | payer MEDICARE ==
[2021-10-15 16:08] LABS: Hemoglobin 13.9 g/dL (14.0-18.0); Mean Corpuscular HGB CONC 34.1 g/dL (32.0-36.0); Mean Corpuscular Hemoglobin 31.1 pg (27.0-31.0); Mean Corpuscular Volume 91.3 fL (78.0-98.0); Mean Platelet Volume 9.1 fL (7.4-10.4); Platelet Count 164 thou/uL (130-400); Red Blood Cell (RBC) Count 4.47 mill/uL (4.70-6.10); White Blood Cell (WBC) Count 16.7 thou/uL (4.8-10.8)
[2021-10-15] MEDS ORDERED: Azithromycin 500 MG VIAL ONE (16:23)
[2021-10-15] MEDS ORDERED: cefTRIAXone\\ROCEPHIN 2 GM VIAL ONE (16:23)
[2021-10-15 16:27] LABS: Acetaminophen Less than 6.0 mcg/mL (10.0-30.0); Alcohol Less than 10 mg/dL (Less than 10); Salicylate Less than 8.0 mg/dL (15.0-30.0)
[2021-10-15 16:29] LABS: ALT (SGPT) 16 U/L (8-55); AST (SGOT) 19 U/L (5-34); Albumin 3.2 g/dL (3.4-4.8); Alkaline Phosphatase 104 U/L (40-110); Anion Gap 23 mmol/L (10-20); BUN (Urea Nitrogen) 100 mg/dL (8.4-25.7); CK (CPK) 203 U/L (30-200); Calc. Creatinine Clearance 0 mL/min (70-130); Calcium 9.5 mg/dL (7.8-10.44); Carbon Dioxide 16 mmol/L (23-31); Chloride 104 mmol/L (98-107); Glucose 423 mg/dL (83-110); Lipase 37 U/L (8-78); Potassium 5.2 mmol/L (3.5-5.1); Protein, Total 6.2 g/dL (5.8-8.1); Sodium 138 mmol/L (136-145)
[2021-10-15 16:35] LABS: Band 16 % (5-11); Burr Cells SLIGHT = 2-5 cells (100X) (0-1/hpf); MDiff Complete? YES; Monocytes 1 % (0-10); Neutrophil 83 % (42-75); Platelet Morphology Comment Appears Adequate; Polychromasia SLIGHT = 2-3 cells (100X) (0-2/hpf)
[2021-10-15 16:53] LABS: CKMB 8.5 ng/mL (0-6.6)
[2021-10-15] MEDS ORDERED: Norepinephrine 8 MG/0.9% NS 250 ML ONE (17:42)
[2021-10-15] MEDS ORDERED: Insulin Regular 300 UNITS/3 ML VIAL ONE (17:46)
[2021-10-15] MEDS ORDERED: Aspirin 325 MG TAB ONE (17:46)
[2021-10-15] MEDS ORDERED: INSULIN REGULAR IN 0.9 % NACL 100 UNIT/100 ML BAG ONE (17:51)
[2021-10-15 19:12] LABS: Actual Bicarbonate (HCO3v) 18 mEq/L (22-28); Analyzer IN Cardio ER; Base Excess -7.3 mEq/L (-2.0 to +3.0); Calcium, Ionized (venous) 1.12 mmol/L (1.16-1.32); Chloride (VBG) 113 mmol/L (98-106); Hemoglobin (Hb) 12.8 g/dL (12.6-17.4); Potassium (VBG) 4.26 mmol/L (3.70-5.30); Sodium 140.8 mmol/L (133-146); pH (venous) 7.33 (7.32-7.43)
[2021-10-15 19:39] LABS: Lactic Acid 2.4 mmol/L (0.5-2.2)
[2021-10-15 19:49] LABS: Troponin I 0.071 ng/mL (< 0.028)
[2021-10-15 19:54] LABS: SARS-CoV-2 NAA Rapid Test Not Detected (NotDetected)
[2021-10-15 20:10] LABS: Bacteria/HPF None Seen HPF (None Seen); Bilirubin Negative (Negative); Blood, Urine 1+ (Negative); Clarity Clear (Clear); Glucose, Urine (Dipstick) 200 mg/dL (Negative); Ketone, Urine Negative (Negative); Leukocyte Negative Leu/uL (Negative); Nitrite Negative (Negative); Protein, Urine (Dipstick) 10 mg/dL (Neg-Trace); RBC/HPF 0-3 HPF (0-3); Specific Gravity, Urine 1.011 (1.002-1.036); Squamous Epithelial 0-3 HPF (0-3); Urobilinogen Normal mg/dL (Less than 2); WBC/HPF 0-3 HPF (0-3)
[2021-10-15 20:12] LABS: Amphetamine Not Detected (NotDetected); Barbiturates Screen Not Detected (NotDetected); Benzodiazepine Screen Not Detected (NotDetected); Cocaine Metabolite Screen Not Detected (NotDetected); Methadone Not Detected (NotDetected); Methamphetamine Not Detected (NotDetected); Opiate Screen Not Detected (NotDetected); Oxycodone Screen Not Detected (NotDetected); Phencyclidine (PCP) Not Detected (NotDetected); THC/Cannabinoid Screen Not Detected (NotDetected); Tricyclic Screen Not Detected (NotDetected)
[2021-10-15 20:14] LABS: Anion Gap 19 mmol/L (10-20); BUN (Urea Nitrogen) 85 mg/dL (8.4-25.7); Calc. Creatinine Clearance 0 mL/min (70-130); Calcium 8.4 mg/dL (7.8-10.44); Carbon Dioxide 16 mmol/L (23-31); Chloride 114 mmol/L (98-107); Glucose 230 mg/dL (83-110); Potassium 4.4 mmol/L (3.5-5.1); Sodium 145 mmol/L (136-145)
[2021-10-15] MEDS ORDERED: D5 1/2 NS w/20 mEq KCL 1,000 ML IV PRN (20:33)
[2021-10-15] MEDS ORDERED: Sodium Chloride 0.9% 1,000 ML IV PRN (20:33)
[2021-10-15] MEDS ORDERED: Ondansetron PF 4 MG/2 ML Vial IVP PRN (20:33)
[2021-10-15] MEDS ORDERED: Acetaminophen 650 MG Suppository PR PRN (20:33)
[2021-10-15] MEDS ORDERED: Electrolyte Replacement Protocol 1 EACH IVPB PRN (20:33)
[2021-10-15] MEDS ORDERED: NS 0.9% w/ 20 MEQ KCL 1,000 ML IV PRN (20:33)
[2021-10-15] MEDS ORDERED: Dextrose 5 %-0.45 % NaCl 1,000 ML IV PRN (20:33)
[2021-10-15] MEDS ORDERED: Ondansetron ODT 4 MG TAB PO PRN (20:33)
[2021-10-15] MEDS ORDERED: HUMULIN R 100 UNITS in Sodium Chloride 0.9% 100 ML IVPB SCH (20:45)
[2021-10-15] MEDS ORDERED: Aspirin 300 MG Suppository ONE (20:54)
[2021-10-15 21:58] LABS: Magnesium 1.8 mg/dL (1.6-2.6); Phosphorus 4.1 mg/dL (2.3-4.7)
[2021-10-15 22:30] LABS: Lactic Acid 2.2 mmol/L (0.5-2.2)
[2021-10-15 22:34] LABS: Anion Gap 18 mmol/L (10-20); BUN (Urea Nitrogen) 82 mg/dL (8.4-25.7); Calc. Creatinine Clearance 17 mL/min (70-130); Calcium 8.6 mg/dL (7.8-10.44); Carbon Dioxide 16 mmol/L (23-31); Chloride 115 mmol/L (98-107); Glucose 92 mg/dL (83-110); Potassium 4.3 mmol/L (3.5-5.1); Sodium 145 mmol/L (136-145)
[2021-10-15 22:39] LABS: Troponin I 0.076 ng/mL (< 0.028)
[2021-10-15] MEDS ORDERED: Magnesium 2 GM/50 ML 2 GM in Premix Bag 1 BAG IVPB SCH (23:00)
[2021-10-16 06:33] LABS: Anion Gap 18 mmol/L (10-20); BUN (Urea Nitrogen) 64 mg/dL (8.4-25.7); Calc. Creatinine Clearance 22 mL/min (70-130); Calcium 8.9 mg/dL (7.8-10.44); Carbon Dioxide 18 mmol/L (23-31); Chloride 114 mmol/L (98-107); Glucose 114 mg/dL (83-110); Potassium 3.9 mmol/L (3.5-5.1); Sodium 146 mmol/L (136-145)
[2021-10-16 06:40] LABS: Hemoglobin 12.5 g/dL (14.0-18.0); Mean Corpuscular HGB CONC 33.5 g/dL (32.0-36.0); Mean Corpuscular Hemoglobin 30.6 pg (27.0-31.0); Mean Corpuscular Volume 91.4 fL (78.0-98.0); Mean Platelet Volume 7.9 fL (7.4-10.4); Platelet Count 204 thou/uL (130-400); RBC Distribution Width 13.1 % (11.5-14.5); White Blood Cell (WBC) Count 17.4 thou/uL (4.8-10.8)
[2021-10-16 06:53] LABS: Band 25 % (5-11); Lymphocytes 5 % (21-51); MDiff Complete? YES; Monocytes 1 % (0-10); Neutrophil 69 % (42-75)
[2021-10-16] MEDS ORDERED: FLU VACC QS2021-22(65YR UP)/PF 240 MCG/0.7 ML SYRINGE IM ONE (09:00)
[2021-10-16 09:42] VITALS: BMI 13.8
[2021-10-16] MEDS: Enoxaparin Sodium 30 MG/0.3 ML SYRINGE SC SCH (09:52)
[2021-10-16 10:47] LABS: Anion Gap 16 mmol/L (10-20); BUN (Urea Nitrogen) 60 mg/dL (8.4-25.7); Calc. Creatinine Clearance 23 mL/min (70-130); Calcium 8.9 mg/dL (7.8-10.44); Carbon Dioxide 21 mmol/L (23-31); Chloride 114 mmol/L (98-107); Glucose 131 mg/dL (83-110); Potassium 3.9 mmol/L (3.5-5.1); Sodium 147 mmol/L (136-145)
[2021-10-16] MEDS ORDERED: Lantus 1000 UNITS/10 ML VIAL SC SCH (11:30)
[2021-10-16] MEDS: Sodium Chloride 0.45% 1,000 ML IV SCH (13:58)
[2021-10-16] MEDS: Azithromycin 250 MG TAB PO SCH (13:58)
[2021-10-16] MEDS ORDERED: cefTRIAXone\\ROCEPHIN 1 GM in Sodium Chloride 0.9% 100 ML IVPB SCH (16:00)
[2021-10-16] MEDS ORDERED: Azithromycin 500 MG in Sodium Chloride 0.9% 250 ML 250 ML IVPB SCH (16:00)
[2021-10-16] MEDS ORDERED: Cefdinir 300 MG CAP PO SCH (21:00)
[2021-10-17] MEDS: Sodium Chloride 0.45% 1,000 ML IV SCH (00:29)
[2021-10-17] MEDS: Levothyroxine Sodium 25 MCG TAB PO SCH (05:03)
[2021-10-17 05:58] LABS: Anion Gap 11 mmol/L (10-20); BUN (Urea Nitrogen) 39 mg/dL (8.4-25.7); Calc. Creatinine Clearance 34 mL/min (70-130); Calcium 8.7 mg/dL (7.8-10.44); Carbon Dioxide 23 mmol/L (23-31); Chloride 110 mmol/L (98-107); Glucose 161 mg/dL (83-110); Potassium 3.3 mmol/L (3.5-5.1); Sodium 141 mmol/L (136-145)
[2021-10-17] MEDS ORDERED: Potassium Bicarbonate/Cit Ac 20 MEQ TAB PO SCH (06:15)
[2021-10-17] MEDS: Enoxaparin Sodium 30 MG/0.3 ML SYRINGE SC SCH (10:04)
[2021-10-17] MEDS: Azithromycin 250 MG TAB PO SCH (12:22)
[2021-10-17] MEDS ORDERED: cefTRIAXone\\ROCEPHIN 1 GM in Sodium Chloride 0.9% 100 ML IVPB SCH (13:15)
[2021-10-17] MEDS: cefTRIAXone\\ROCEPHIN 1 GM VIAL IM SCH ×2 (14:00→15:02)
[2021-10-17] MEDS ORDERED: Dextrose 50% Abboject 50 ML SYRINGE SLOW IVP PRN (16:38)
[2021-10-17] MEDS ORDERED: Dextrose 5% in Water 1,000 ML IV PRN (16:38)
[2021-10-17] MEDS: HumaLOG 300 UNITS/3 ML VIAL SC PRN (18:39)
[2021-10-18] MEDS: HumaLOG 300 UNITS/3 ML VIAL SC PRN ×2 (00:25→12:02)
[2021-10-18] MEDS: Levothyroxine Sodium 25 MCG TAB PO SCH (05:42)
[2021-10-18 06:18] LABS: Mean Corpuscular HGB CONC 34.4 g/dL (32.0-36.0); Mean Corpuscular Hemoglobin 31.6 pg (27.0-31.0); Mean Corpuscular Volume 91.7 fL (78.0-98.0); Mean Platelet Volume 7.4 fL (7.4-10.4); Platelet Count 172 thou/uL (130-400); RBC Distribution Width 12.8 % (11.5-14.5); White Blood Cell (WBC) Count 8.8 thou/uL (4.8-10.8)
[2021-10-18 06:35] LABS: Anion Gap 8 mmol/L (10-20); BUN (Urea Nitrogen) 29 mg/dL (8.4-25.7); Calc. Creatinine Clearance 42 mL/min (70-130); Calcium 8.1 mg/dL (7.8-10.44); Carbon Dioxide 26 mmol/L (23-31); Chloride 105 mmol/L (98-107); Glucose 82 mg/dL (83-110); Potassium 3.3 mmol/L (3.5-5.1); Sodium 136 mmol/L (136-145)
[2021-10-18] MEDS: Enoxaparin Sodium 30 MG/0.3 ML SYRINGE SC SCH (09:52)
[2021-10-18] MEDS: Azithromycin 250 MG TAB PO SCH (13:34)
[2021-10-18] MEDS ORDERED: Cefdinir 300 MG CAP PO SCH (13:45)
[2021-10-18] MEDS: Lantus 1000 UNITS/10 ML VIAL SC SCH (21:24)
[2021-10-18] MEDS: Cefdinir 300 MG CAP PO SCH (21:24)
[2021-10-18] MEDS ORDERED: traZODone HCl 50 MG TAB PO SCH (22:56)
[2021-10-19] MEDS: Levothyroxine Sodium 25 MCG TAB PO SCH (05:25)
[2021-10-19] MEDS: Acetaminophen 325 MG TAB PO PRN ×2 (05:25→20:53)
[2021-10-19 06:24] LABS: Anion Gap 11 mmol/L (10-20); BUN (Urea Nitrogen) 20 mg/dL (8.4-25.7); Calc. Creatinine Clearance 46 mL/min (70-130); Carbon Dioxide 26 mmol/L (23-31); Chloride 103 mmol/L (98-107); Glucose 163 mg/dL (83-110); Potassium 3.6 mmol/L (3.5-5.1); Sodium 136 mmol/L (136-145)
[2021-10-19] MEDS: Cefdinir 300 MG CAP PO SCH ×2 (09:52→20:53)
[2021-10-19] MEDS: Enoxaparin Sodium 30 MG/0.3 ML SYRINGE SC SCH (09:53)
[2021-10-19] MEDS: Azithromycin 250 MG TAB PO SCH (13:17)
[2021-10-19] MEDS: Lantus 1000 UNITS/10 ML VIAL SC SCH (20:53)
[2021-10-20 05:37] LABS: Anion Gap 11 mmol/L (10-20); BUN (Urea Nitrogen) 15 mg/dL (8.4-25.7); Calc. Creatinine Clearance 50 mL/min (70-130); Carbon Dioxide 26 mmol/L (23-31); Chloride 105 mmol/L (98-107); Potassium 3.4 mmol/L (3.5-5.1); Sodium 139 mmol/L (136-145)
[2021-10-20 05:42] LABS: Glucose 56 mg/dL (83-110)
[2021-10-20] MEDS: Levothyroxine Sodium 25 MCG TAB PO SCH (06:03)
[2021-10-20] MEDS: Acetaminophen 325 MG TAB PO PRN ×2 (08:23→12:53)
[2021-10-20] MEDS: Cefdinir 300 MG CAP PO SCH (08:23)
[2021-10-20] MEDS: Enoxaparin Sodium 30 MG/0.3 ML SYRINGE SC SCH (08:24)
[2021-10-20 10:18] VITALS: BP 135/63; TEMP 97.9
[2021-10-20] MEDS: HumaLOG 300 UNITS/3 ML VIAL SC PRN (11:23)
[2021-10-20] MEDS ORDERED: Lantus 1000 UNITS/10 ML VIAL SC SCH (21:00)
== END 2021-10-20 17:50 | disposition hospice, home (50) | DRG 177 ==
LOC: ERS 15:10 → IMCU/EMU 17:23 → MSONC 10-16 14:34
PROVIDERS: ADMIT Internal Medicine; ATTEND Internal Medicine
PROC: 02HV33Z Insertion of Infusion Device into Superior Vena Cava, Percutaneous Approach (ICD-10-PCS; principal; 2021-10-15)
PROC: B548ZZA Ultrasonography of Superior Vena Cava, Guidance (ICD-10-PCS; 2021-10-15)
DX: J69.0 Pneumonitis due to inhalation of food and vomit (principal); E11.10 Type 2 diabetes mellitus with ketoacidosis without coma; Z51.5 Encounter for palliative care; Z66 Do not resuscitate; Z20.822 Contact with and (suspected) exposure to COVID-19; E43 Unspecified severe protein-calorie malnutrition; G93.41 Metabolic encephalopathy; Z68.1 Body mass index [BMI] 19.9 or less, adult; R64 Cachexia; N17.9 Acute kidney failure, unspecified; E87.0 Hyperosmolality and hypernatremia; F03.91 Unspecified dementia, unspecified severity, with behavioral disturbance; I10 Essential (primary) hypertension; E86.0 Dehydration; R13.10 Dysphagia, unspecified; D64.9 Anemia, unspecified; F41.9 Anxiety disorder, unspecified; F32.A Depression, unspecified; E11.649 Type 2 diabetes mellitus with hypoglycemia without coma; Z28.21 Immunization not carried out because of patient refusal; Z79.899 Other long term (current) drug therapy; Z78.1 Physical restraint status; Z79.4 Long term (current) use of insulin; Z79.890 Hormone replacement therapy
CPT/HCPCS: 36415; 36416; 36556; 71045; 80048; 80053; 80306; 80307; 81003; 81015; 82010; 82040; 82140; 82550; 82553; 82805; 83605; 83690; 83735; 83880; 83930; 84100; 84443; 84484; 85025; 85027; 93005; 96374; 96375; J0456; J0696; J1650; J1815; J3475; J3490; J7042; J7050; U0002